=== PATIENT | male | born 1960 | race Caucasian/White ===

== ENCOUNTER → 2016-12-05 | Outpatient (CLI) | payer BC | LOC: MRI 12:57 | DX: M50.10 Cervical disc disorder with radiculopathy, unspecified cervical region (principal); M50.122 Cervical disc disorder at C5-C6 level with radiculopathy; M47.22 Other spondylosis with radiculopathy, cervical region; Z98.1 Arthrodesis status | CPT/HCPCS: 36415; 72156; 82565; 84520; A9577 ==

== ENCOUNTER 2021-05-11 12:00 | Emergency (ER) | payer OTHER ==
[~2021-05-11] VITALS: Ht 180.3 cm; Wt 92.5 kg
[2021-05-11] MEDS ORDERED: DELSYM30 MG/5 ML PO (15:36)
== END 2021-05-11 15:50 | disposition home or self-care (01) ==
LOC: ER1 12:00
DX: U07.1 COVID-19 (principal); Z23 Encounter for immunization; I10 Essential (primary) hypertension; J45.909 Unspecified asthma, uncomplicated; Z90.49 Acquired absence of other specified parts of digestive tract; Z88.1 Allergy status to other antibiotic agents
CPT/HCPCS: 99283; M0243

== ENCOUNTER → 2021-09-30 | Outpatient (CLI) | payer OTHER ==
[~2021-09-30] MED LIST: DELSYM30 MG/5 ML PO
[2021-09-30 08:35] LABS: HEMOGLOBIN 10.3 gm/dl (14.0-17.5); WHITE BLOOD COUNT 4.8 K/UL (4.5-11.0)
[2021-09-30 09:03] LABS: BUN/CREATININE RATIO 18 (0-10)
== END ==
LOC: LAB 08:15
PROVIDERS: Internal Medicine
DX: E29.1 Testicular hypofunction (principal); I10 Essential (primary) hypertension
CPT/HCPCS: 36415; 80048; 80061; 80076; 84402; 84403; 84443; 85025

== ENCOUNTER → 2021-11-20 | Day surgery (SDC) | payer OTHER ==
[~2021-11-20] MED LIST changes: +ALLERGY RELIEF5 MG PO; +CELEBREX 200MG200 MG PO; +CITALOPRAM HBR20 MG PO; +CYCLOBENZAPRINE5 MG PO; +DAILY VALUE1 EACH PO; +DEXILANT60 MG PO; +FLOMAX 0.4 MG0.4 MG PO; +HYDROCODONE BIT PO; +IPRATROPIUM BRO15 ML; +LEVOTHYROXINE100 MC2 PO; +LIPITOR10 MG PO; +MONTELUKAST SOD10 MG PO; +MOVANTIK25 MG PO; +PATADAY2.5 ML EYEBOTH; +PHENERGAN 25 MG25 M1 PO; +PREGABALIN150 MG PO; +PROAIR HFA8.5 GM INH; +TESTOSTERONE25 GM MC; +TRELEGY ELLIPT1 EAC1 INH; +TRELEGY ELLIPT1 EACH INH; +VALSARTAN40 MG PO; +VIAGRA100 MG PO; +VITAMIN B12 OTC; +VITAMIN D OTC
== END | disposition home or self-care (01) ==
LOC: OR 06:00
DX: D62 Acute posthemorrhagic anemia (principal); K31.9 Disease of stomach and duodenum, unspecified; K29.70 Gastritis, unspecified, without bleeding; K44.9 Diaphragmatic hernia without obstruction or gangrene; K57.30 Diverticulosis of large intestine without perforation or abscess without bleeding; N40.0 Benign prostatic hyperplasia without lower urinary tract symptoms; K64.0 First degree hemorrhoids; J45.909 Unspecified asthma, uncomplicated; I10 Essential (primary) hypertension; E78.2 Mixed hyperlipidemia; M06.9 Rheumatoid arthritis, unspecified; E03.9 Hypothyroidism, unspecified; E66.9 Obesity, unspecified; Z68.29 Body mass index [BMI] 29.0-29.9, adult; Z20.822 Contact with and (suspected) exposure to COVID-19; Z86.16 Personal history of COVID-19; Z88.0 Allergy status to penicillin; Z72.0 Tobacco use
CPT/HCPCS: J2704; J7120

== ENCOUNTER → 2021-11-29 | Outpatient (CLI) | payer OTHER | LOC: KOH-I 15:30 | DX: R06.02 Shortness of breath (principal) | CPT/HCPCS: 71046 ==

== ENCOUNTER → 2021-12-01 | Outpatient (CLI) | payer OTHER ==
[~2021-12-01] VITALS: Ht 180.3 cm; Wt 94.3 kg
== END ==
LOC: EROP 10:58
DX: D64.9 Anemia, unspecified (principal)
CPT/HCPCS: 96365; J1756

== ENCOUNTER → 2021-12-02 | Outpatient (CLI) | payer OTHER | LOC: EROP 07:04 | DX: D64.9 Anemia, unspecified (principal) | CPT/HCPCS: 96365; J1756 ==

== ENCOUNTER → 2021-12-03 | Outpatient (CLI) | payer OTHER | LOC: EROP 06:50 | DX: D64.9 Anemia, unspecified (principal) | CPT/HCPCS: 96365; J1756 ==

== ENCOUNTER → 2021-12-04 | Outpatient (CLI) | payer OTHER | LOC: OPSV 07:35 → EROP 07:41 | DX: D64.9 Anemia, unspecified (principal) | CPT/HCPCS: 96365; J1756 ==

== ENCOUNTER → 2021-12-05 | Outpatient (CLI) | payer OTHER ==
[~2021-12-05] VITALS: Ht 180.3 cm; Wt 94.3 kg
== END ==
LOC: OPSV 14:00
DX: D64.9 Anemia, unspecified (principal)
CPT/HCPCS: 96365; J1756

== ENCOUNTER → 2021-12-06 | Outpatient (CLI) | payer OTHER ==
[~2021-12-06] VITALS: Ht 180.3 cm; Wt 94.3 kg
== END ==
LOC: OPSV 13:37
DX: D64.9 Anemia, unspecified (principal)
CPT/HCPCS: 96365; J1756

== ENCOUNTER → 2021-12-07 | Outpatient (CLI) | payer OTHER | LOC: OPSV 14:00 | DX: D64.9 Anemia, unspecified (principal) | CPT/HCPCS: 96365; J1756 ==

== ENCOUNTER → 2021-12-14 | Outpatient (CLI) | payer OTHER | LOC: OPSV 13:41 | DX: D64.9 Anemia, unspecified (principal) | CPT/HCPCS: 96365; J1756 ==

== ENCOUNTER → 2021-12-21 | Outpatient (CLI) | payer OTHER | LOC: OPSV 13:45 | DX: D64.9 Anemia, unspecified (principal) | CPT/HCPCS: 96365; J1756 ==

== ENCOUNTER → 2021-12-28 | Outpatient (CLI) | payer OTHER ==
[~2021-12-28] VITALS: Ht 180.3 cm; Wt 94.3 kg
== END ==
LOC: OPSV 13:18
DX: D64.9 Anemia, unspecified (principal)
CPT/HCPCS: 96365; J1756

== ENCOUNTER → 2022-01-01 | Outpatient (CLI) | payer OTHER | LOC: KOH-I 08:05 | DX: R31.9 Hematuria, unspecified (principal); D64.9 Anemia, unspecified | CPT/HCPCS: 74176 ==

== ENCOUNTER → 2022-01-04 | Outpatient (CLI) | payer OTHER ==
[~2022-01-04] VITALS: Ht 180.3 cm; Wt 94.3 kg
== END ==
LOC: OPSV 13:36
DX: D64.9 Anemia, unspecified (principal)
CPT/HCPCS: 96365; J1756

== ENCOUNTER → 2022-01-12 | Outpatient (CLI) | payer OTHER | LOC: RAD 08:49 | DX: K57.90 Diverticulosis of intestine, part unspecified, without perforation or abscess without bleeding (principal); K44.9 Diaphragmatic hernia without obstruction or gangrene; K22.89 Other specified disease of esophagus; K21.9 Gastro-esophageal reflux disease without esophagitis | CPT/HCPCS: 74246; 74248 ==

== ENCOUNTER → 2022-01-17 | Outpatient (CLI) | payer OTHER | LOC: CT 12:27 | DX: N28.1 Cyst of kidney, acquired (principal); N28.89 Other specified disorders of kidney and ureter | CPT/HCPCS: 36415; 82565; 84520; Q9967 ==